=== PATIENT | male | born 1945 | race Caucasian/White ===

== ENCOUNTER 2019-05-12 00:35 | Inpatient (IN) ==
[2019-05-12] MEDS ORDERED: IOPAMIDOL 100 ML BOTTLE IV ONE (00:36)
[2019-05-12] MEDS ORDERED: 0.9 % SODIUM CHLORIDE 1,000 ML IV ONE (00:54)
[2019-05-12] MEDS ORDERED: IPRATROPIUM/ALBUTEROL 3 ML AMPUL.NEB NEB ONE (00:57)
--- NOTE | 2019-05-12 01:00 | Emergency Department Note ---
Weakness HPI - General Chief complaint: Weakness Stated complaint: found on floor moaning Time Seen by Provider: 05/12/19 00:49 Source: patient, family Mode of arrival: EMS - History of Present Illness HPI Narrative: 73-year-old male brought in by EMS for weakness since this afternoon. His family apparently found him on the floor and he was a little bit confused. He did not fall but lowered himself to the floor. He has been retching and he is wheezing. His family and him are visiting from the [facility]. Is very hard of hearing wears hearing aids so patient's is giving us most of the history - Related Data Home Medications Medication Instructions Recorded Confirmed Insulin NPH, Human [HumaLIN N] 38 units 05/12/19 Lisinopril [Zestril] 10 mg PO BID 05/12/19 05/12/19 Warfarin [Coumadin] 3 mg PO DAILY 05/12/19 05/12/19 Allergies Allergy/AdvReac Type Severity Reaction Status Date / Time thimerosal Allergy Verified 05/12/19 02:04 Review of Systems All systems ED: reviewed and negative except as stated. Past Medical History - Past Medical History Attestation: Yes: The following information was validated with the patient. Medical history: Reports: atrial fibrillation, DM, hyperlipidemia, hypertension Surgical history ED: Reports: pacemaker/AICD, other (Back surgery) - Social History smoking status: Never smoker Physical Exam Normocephalic atraumatic. Conjunctive are clear sclerae white and icteric. He does have gross hearing loss. No nasal does discharge or congestion. Oropharynx is with dry buccal mucosa. Neck is supple without lymphadenopathy thyromegaly or carotid bruit. Heart is regular rate and rhythm no murmur appreciated. Lungs clear to auscultation bilaterally without rales or rhonchi but he clearly has an end expiratory wheeze-auscultation is somewhat difficult secondary to body habitus. Abdomen soft nontender nondistended except for the left lower quadrant. Which has mild tenderness diffusely. Bilateral lower extremities with mild pedal edema. He is somnolent and somewhat irritable. He is however able to answer questions appropriately Limitations: altered mental status, other (Hearing aids) Course Vital Signs Temperature 99.4 F H 05/12/19 00:39 Pulse Rate 73 05/12/19 00:39 Respiratory Rate 24 H 05/12/19 00:39 Pulse Oximetry (%) 94 05/12/19 00:39 Temperature 99.4 F H 05/12/19 00:39 Pulse Rate 76 05/12/19 02:53 Respiratory Rate 20 05/12/19 02:53 Blood Pressure 172/90 05/12/19 02:53 Pulse Oximetry (%) 89 L 05/12/19 02:53 Weakness - Lab Data Lab results reviewed: Yes I reviewed the patient's lab results. Result diagrams: 05/12/19 01:12 05/12/19 01:12 Lab Results 05/12/19 05/12/19 05/12/19 Range/Units 01:12 01:12 01:12 WBC 17.4 H (4.5-11.0) K/mcL RBC 4.87 (4.50-5.90) M/mcL Hgb 14.5 (13.5-16.5) g/dL Hct 45.3 (41.0-55.0) % POC Hct 49.0 (41.0-55.0) % MCV 93.2 (80.0-100.0) fL MCH 29.9 (26.0-34.0) pg MCHC 32.1 (31.0-36.0) g/dL RDW 15.7 H (11.5-14.5) % Plt Count 219 (140-440) K/mcL MPV 8.8 (7.4-10.4) fL Gran % 91.0 H (38.0-78.0) % Lymph % (Auto) 3.2 L (15.5-49.0) % [place] % (Auto) 5.5 (1.0-12.0) % Eos % (Auto) 0.1 (0.0-7.0) % Baso % (Auto) 0.2 (0.0-2.0) % Gran # 15.9 H (1.8-8.0) K/mcL Lymph # (Auto) 0.6 L (1.5-4.8) K/mcL [place] # (Auto) 1.0 H (0.1-0.9) K/mcL Eos # (Auto) 0 (0.0-0.7) K/mcL Baso # (Auto) 0 (0.0-0.3) K/mcL PT 26.9 H (11.9-14.5) sec INR 2.5 H (0.9-1.1) VBG Lactic Acid (0.5-2.0) mmol/L POC Sodium 137 (133-145) mmol/L Sodium 136 (133-145) mmol/L POC Potassium 4.8 (3.3-5.1) mmol/L Potassium 5.1 (3.3-5.1) mmol/L POC Chloride 102 (96-108) mmol/L Chloride 97 (96-108) mmol/L Carbon Dioxide 20 L (22-30) mmol/L POC Total CO2 25 (22-30) mmol/L Anion Gap 19.0 H (8-16) POC BUN 32 H (8-23) mg/dl BUN 28 H (8-23) mg/dl Creatinine 1.3 H (0.7-1.2) mg/dl POC Creatinine 1.3 H (0.7-1.2) mg/dl GFR Calculation 53 Glucose 278 H (70-105) mg/dL POC Glucose 289 H (70-105) mg/dL Calcium 8.6 (8.6-10.4) mg/dl POC WB Ioniz Calcium 1.06 L (1.16-1.32) mmol/L Magnesium 1.9 (1.6-2.5) mg/dL Total Bilirubin 0.8 (0.0-1.0) mg/dL AST 25 (0-37) U/l ALT 29 (0-40) U/l Alkaline Phosphatase 114 (39-117) U/L Troponin T (0-0.03) ng/ml NT-Pro-B Natriuret Pep 495.7 H (0-450) pg/ml Total Protein 7.2 (5.9-8.4) gm/dL Albumin 3.8 (3.2-5.2) gm/dL Globulin 3.4 (2.2-3.7) gm/dL Albumin/Globulin Ratio 1.1 (1.0-2.3) Procalcitonin (<0.10) ng/mL 05/12/19 05/12/19 05/12/19 Range/Units 01:12 01:12 01:27 WBC (4.5-11.0) K/mcL RBC (4.50-5.90) M/mcL Hgb (13.5-16.5) g/dL Hct (41.0-55.0) % POC Hct (41.0-55.0) % MCV (80.0-100.0) fL MCH (26.0-34.0) pg MCHC (31.0-36.0) g/dL RDW (11.5-14.5) % Plt Count (140-440) K/mcL MPV (7.4-10.4) fL Gran % (38.0-78.0) % Lymph % (Auto) (15.5-49.0) % [place] % (Auto) (1.0-12.0) % Eos % (Auto) (0.0-7.0) % Baso % (Auto) (0.0-2.0) % Gran # (1.8-8.0) K/mcL Lymph # (Auto) (1.5-4.8) K/mcL [place] # (Auto) (0.1-0.9) K/mcL Eos # (Auto) (0.0-0.7) K/mcL Baso # (Auto) (0.0-0.3) K/mcL PT (11.9-14.5) sec INR (0.9-1.1) VBG Lactic Acid 1.8 (0.5-2.0) mmol/L POC Sodium (133-145) mmol/L Sodium (133-145) mmol/L POC Potassium (3.3-5.1) mmol/L Potassium (3.3-5.1) mmol/L POC Chloride (96-108) mmol/L Chloride (96-108) mmol/L Carbon Dioxide (22-30) mmol/L POC Total CO2 (22-30) mmol/L Anion Gap (8-16) POC BUN (8-23) mg/dl BUN (8-23) mg/dl Creatinine (0.7-1.2) mg/dl POC Creatinine (0.7-1.2) mg/dl GFR Calculation Glucose (70-105) mg/dL POC Glucose (70-105) mg/dL Calcium (8.6-10.4) mg/dl POC WB Ioniz Calcium (1.16-1.32) mmol/L Magnesium (1.6-2.5) mg/dL Total Bilirubin (0.0-1.0) mg/dL AST (0-37) U/l ALT (0-40) U/l Alkaline Phosphatase (39-117) U/L Troponin T < 0.01 (0-0.03) ng/ml NT-Pro-B Natriuret Pep (0-450) pg/ml Total Protein (5.9-8.4) gm/dL Albumin (3.2-5.2) gm/dL Globulin (2.2-3.7) gm/dL Albumin/Globulin Ratio (1.0-2.3) Procalcitonin 0.12 (<0.10) ng/mL ABG shows a pH 7.38 PCO2 43 PO2 56 on oxygen - Radiology Data Radiology results reviewed: Yes I reviewed the patient's radiology results. Portable chest x-ray shows left-sided infiltrate with increased pulmonary vascular markings likely severe pneumonia with underlying heart failure Bladder scan showed 212 ml of urine - EKG Data EKG attestation: Yes I reviewed and interpreted this EKG. EKG results narrative: EKG shows a rate of 78 with atrial flutter 3-1 AV block. Disposition Pt seen by RN PARALEGAL/PA only: No Clinical Impression: Pneumonia Qualifiers: Pneumonia type: due to unspecified organism Laterality: left Lung location: unspecified part of lung Qualified Code(s): J18.9 - Pneumonia, unspecified organism Sepsis Qualifiers: Sepsis type: sepsis due to unspecified organism Qualified Code(s): A41.9 - Sepsis, unspecified organism Summary: After initial evaluation work-up was ordered. Start IV fluids blood cultures get antibiotics going. Concern for Sirs versus sepsis criteria with elevated temperature, tachypnea, altered mental status, and hypoxia. Requiring mask oxygen Bladder scan just showed 212 and he was unable to void so Marc catheter placed. CT scan ordered because chest x-ray showed left-sided pneumonia. I discussed the situation with Dr. Rosales, our hospitalist. He agreed to accept patient for further care and evaluation. At the time of admission CT scan of the chest and urinalysis are still pending Disposition: Xfer As Inpt ([facility]) Condition: Fair
[2019-05-12] MEDS ORDERED: ONDANSETRON 4 MG/2 ML VIAL IV ONE (01:01)
[2019-05-12] MEDS ORDERED: VANCOMYCIN 1,000 MG in 0.9 % SODIUM CHLORIDE 250 ML IV ONE (01:01)
[2019-05-12] MEDS ORDERED: PIPERACILLIN SODIUM/TAZOBACTAM 3.375 GM in DEXTROSE 5% IN WATER 50 ML IV ONE (01:01)
[2019-05-12 01:58] LABS: POC Blood Urea Nitrogen 32 mg/dl (8-23); POC CO2 25 mmol/L (22-30); POC Calcium, Ionized 1.06 mmol/L (1.16-1.32); POC Chloride 102 mmol/L (96-108); POC Creatinine 1.3 mg/dl (0.7-1.2); POC Glucose, Random 289 mg/dL (70-105); POC Potassium 4.8 mmol/L (3.3-5.1); POC Sodium 137 mmol/L (133-145)
[2019-05-12 02:21] LABS: Basophils # (Auto) 0 K/mcL (0.0-0.3); Basophils % (Auto) 0.2 % (0.0-2.0); Eosinophils # (Auto) 0 K/mcL (0.0-0.7); Eosinophils % (Auto) 0.1 % (0.0-7.0); Hematocrit 45.3 % (41.0-55.0); Hemoglobin 14.5 g/dL (13.5-16.5); Lymphocytes # (Auto) 0.6 K/mcL (1.5-4.8); Lymphocytes % (Auto) 3.2 % (15.5-49.0); Mean Cell Volume 93.2 fL (80.0-100.0); Mean Corpuscular HGB Conc 32.1 g/dL (31.0-36.0); Mean Platelet Volume 8.8 fL (7.4-10.4); Monocytes % (Auto) 5.5 % (1.0-12.0); Platelet Count 219 K/mcL (140-440); RBC 4.87 M/mcL (4.50-5.90); Red Cell Distribution Width 15.7 % (11.5-14.5); WBC 17.4 K/mcL (4.5-11.0)
[2019-05-12 02:31] LABS: INR 2.5 (0.9-1.1); Prothrombin Time 26.9 sec (11.9-14.5)
[2019-05-12 02:42] LABS: proBNP 495.7 pg/ml (0-450)
[2019-05-12 02:43] LABS: ALT/SGPT 29 U/l (0-40); AST/SGOT 25 U/l (0-37); Albumin 3.8 gm/dL (3.2-5.2); Albumin/Globulin Ratio 1.1 (1.0-2.3); Alkaline Phosphatase 114 U/L (39-117); Bilirubin,Total 0.8 mg/dL (0.0-1.0); Blood Urea Nitrogen 28 mg/dl (8-23); Calcium 8.6 mg/dl (8.6-10.4); Carbon Dioxide 20 mmol/L (22-30); Chloride 97 mmol/L (96-108); Globulin 3.4 gm/dL (2.2-3.7); Glomerular Filtration Rate 53; Glucose 278 mg/dL (70-105); Magnesium 1.9 mg/dL (1.6-2.5); Potassium 5.1 mmol/L (3.3-5.1); Sodium 136 mmol/L (133-145)
[2019-05-12] MEDS ORDERED: AZITHROMYCIN 250 MG TABLET PO ONE ×2 (03:08→03:52)
[2019-05-12] MEDS ORDERED: NALOXONE HCL 0.4 MG/ML VIAL IV PRN (03:52)
[2019-05-12] MEDS ORDERED: DEXTROSE 31 GM ORAL.SUSP PO PRN (03:52)
[2019-05-12] MEDS ORDERED: VANCOMYCIN PER PHARMACY IV SCH (03:52)
[2019-05-12] MEDS ORDERED: DEXTROSE 50% 50 ML VIAL IV PRN (03:52)
[2019-05-12] MEDS ORDERED: ONDANSETRON 4 MG/2 ML VIAL IV PRN (03:52)
[2019-05-12 04:20] LABS: Appearance,Urine CLEAR; Bacteria,Urine 0 /hpf (0); Bilirubin,Urine NEG (NEG); Color,Urine YELLOW; Culture Indicated,Urine NO; Glucose,Urine (UA) >=500 mg/dL (NEG); Ketones,Urine 20 mg/dL (NEG); Leukocyte Esterase,Urine NEG /uL (NEG); Mucus,Urine FEW /hpf (0); Nitrate,Urine NEG (NEG); Protein,Urine 100 mg/dL (NEG); Urine Blood 0.2 mg/dL (<0.03); Urine RBC 22 /hpf (0-1); Urine Squamous Epithelial Cell 0 /hpf (0-4); Urine WBC 1 /hpf (0-4); Urobilinogen,Urine NEG (NEG)
[2019-05-12] MEDS: LACTATED RINGERS 1,000 ML IV SCH ×3 (04:31→11:53)
[2019-05-12] MEDS: PIPERACILLIN SODIUM/TAZOBACTAM 4.5 GM in DEXTROSE 5% IN WATER 50 ML IV SCH ×3 (04:32→14:00)
[2019-05-12] MEDS: 0.9 % SODIUM CHLORIDE 10 ML SYRINGE IV SCH ×3 (05:37→21:00)
--- NOTE | 2019-05-12 07:02 | XRay Report ---
INDICATION: Found down TECHNIQUE: AP chest x-ray,portable semiupright COMPARISON: None FINDINGS:Left transvenous pacemaker leads in appropriate positions for right atrium and right ventricle. There are spinal cord stimulator leads present. Examination is suboptimal due to portable technique and semiupright position There is cardiomegaly. There are diffuse infiltrates, left worse than right. Findings may be due to congestive heart failure but left lung pneumonia is also possible. Clinical correlation and follow-up radiographs are recommended. IMPRESSION: 1. Diffuse infiltrates, left worse than right 2. Cardiomegaly 3. Findings consistent with congestive heart failure. Left lung pneumonia is also possible Interpreted and Authenticated by: Marc Saldaña 05/12/19
--- NOTE | 2019-05-12 07:20 | Cat Scan Report ---
CLINICAL INFORMATION: Found down COMPARISON: None. TECHNIQUE: Axial noncontrast-enhanced images through the brain. Sagittal and coronal reformatted images FINDINGS: No acute intracranial hemorrhage. No intra-axial hematoma. No focal intra-axial attenuation abnormality or localized mass effect. No midline shift. There is mild atrophy with enlarged ventricles and superficial subarachnoid spaces. This is probably age appropriate. Brainstem and cerebellum are negative. No subdural hematoma. There is no subarachnoid hemorrhage. Basilar cisterns are normal. No hyperdense middle cerebral artery sign. No calvarial fracture or lytic lesion. Temporal bones are negative. No basilar skull fracture. Examination was initially evaluated by direct radiology IMPRESSION: No acute or focal abnormality The exam was performed using radiation dose optimization techniques including, but not limited to, automated exposure control, adjustment of the mA and/or kV according to patient size and use of iterative reconstruction technique. Interpreted and Authenticated by: Marc Saldaña 05/12/19
[2019-05-12] MEDS: IPRATROPIUM/ALBUTEROL 3 ML AMPUL.NEB NEB SCH ×3 (07:23→19:20)
--- NOTE | 2019-05-12 07:24 | Cat Scan Report ---
CLINICAL INFORMATION: left lung pneumonia COMPARISON: Chest x-ray dated 05/12/2019 TECHNIQUE: Axial contrast enhanced images through the chest. Sagittally and coronally reformatted images. MIP reformatted images. 80 mL contrast material injected intravenously. FINDINGS: Suboptimal evaluation due to patient motion and inability to suspend respirations. There is diffuse pulmonary parenchymal abnormality with areas of groundglass infiltrate. Infiltrate is worse on the left than the right. Findings may be due to pulmonary edema or pneumonia. Follow-up radiographs recommended. There is mild cardiomegaly. Shaylee and mediastinum are negative. No pathologic adenopathy. No axillary or supraclavicular adenopathy. There is coronary artery calcification. There is no pericardial effusion. No significant pleural effusion. No pulmonary parenchymal mass. No evidence for neoplasm. Multilevel degenerative disc disease in the thoracic spine. No thoracic compression fractures. No lytic lesions. Sternum and ribs are negative. Upper abdomen is negative except for mild cholelithiasis. Examination was initially reviewed by [facility] IMPRESSION: 1. Airspace disease with patchy infiltrates bilaterally. Findings may be due to pneumonia or pulmonary edema. Clinical correlation and follow-up radiograph recommended 2. Mild cardiomegaly 3. Cholelithiasis The exam was performed using radiation dose optimization techniques including, but not limited to, automated exposure control, adjustment of the mA and/or kV according to patient size and use of iterative reconstruction technique. Interpreted and Authenticated by: Marc Saldaña 05/12/19
[2019-05-12] MEDS: INSULIN LISPRO 1 UNIT/0.01 ML UNIT SQ SCH ×4 (08:54→22:06)
[2019-05-12] MEDS: MUPIROCIN OINT 2% 22GM NARES SCH (08:55)
[2019-05-12] MEDS: HEPARIN 5,000 UNIT/ML VIAL SQ SCH (09:00)
--- NOTE | 2019-05-12 09:18 | Internal Med History&Physical ---
Medical - H&P: HPI Patient information: Note initiated : 05/12/19 at 9:15 am Service Date, if different from initiated Date: [] Patient: Will Elizalde a 77 y/o M admitted on 05/12/19 for found on floor moaning. Chief Complaint: [] History of present illness: Mr. Elizalde is a 77 year old M individual with multiple medical problems hard of hearing presented to the emergency room early this morning because of cough and weakness that has been bothering him for 1 day. The patient is hard of hearing and history is predominately by direct questioning. Patient's was not by the bedside The patient notes that he was here to visit family, he is a resident of [place], he does have a history of atrial fibrillation diabetes he takes Coumadin. The patient has been having cough for the last 1 day, denies any sick contacts denies any mucus production. Subjective sensation of weakness some chills denies any obvious fever his condition progressively got worse, he was confused and yesterday it seems he fell to the ground or slip to the ground when he woke up during sleep. His family therefore brought him to the emergency room for further evaluation. The patient denies any headache changes in vision difficulty in swallowing denies any chest pain does have some cough week and therefore some shortness of breath on exertion, no nausea no vomiting no diarrhea no abdominal pain no new skin rashes has chronic back pain has a spinal cord stimulator. Has easy bruising he takes Coumadin, denies any obvious bleeding from any site. Denies any urinary complaints. On presenting to the emergency room patient was febrile, blood pressure stable mildly tachypneic, needing oxygen 5 to 6 L nasal cannula to maintain oxygen saturation more than 90. Labs showed leukocytosis WBC count of 17.4 hemoglobin 14.5 platelets 219 lactic acid 1.8 INR 2.5 chemistry showed renal function of 1.3 BUN 28 anion gap of 19 glucose 278 sodium 136 potassium 4.8 bicarbonate 20 BNP was 495, troponin is negative procalcitonin is 0.12. ABG done shows pH of 7.38 PCO2 43 PO2 of 56 Patient chest x-ray shows diffuse infiltrates left more than right. Head CT was negative, chest CT shows bilateral airspace disease mild cardiomegaly. Mycoplasma and strep pneumonia antigen are negative EKG shows sinus rhythm left axis Patient admitted to telemetry status for further management All systems: reviewed and no additional remarkable complaints except as stated (as per HPI rest negative) Medical - H&P: PMH Medical history: Atrial fibrillation Obesity Hypertension Diabetes Chronic back pain status post pacemaker chronic anticoagulate Surgical history: Status post spinal stimulate Status post pacemaker Family history: reviewed and not pertinent Social history: Lives with Non-smoker No drugs or EtOH reported Medical - H&P: Meds Home Medications Medication Instructions Recorded Confirmed Type Insulin NPH, Human [HumaLIN N] 38 units 05/12/19 History Lisinopril [Zestril] 10 mg PO BID 05/12/19 05/12/19 History Warfarin [Coumadin] 3 mg PO DAILY 05/12/19 05/12/19 History Allergies Allergy/AdvReac Type Severity Reaction Status Date / Time thimerosal Allergy Verified 05/12/19 02:04 Medical - H&P: Exam - Constitutional Vitals: Temp Pulse Resp BP Pulse Ox 100.9 F H 69 20 121/61 96 05/12/19 05:00 05/12/19 07:39 05/12/19 07:39 05/12/19 04:17 05/12/19 07:38 Exam: GENERAL: The patient is a well-developed, obese in no apparent distress. Is alert and oriented x3. VITAL SIGNS: Reviewed and as noted elsewhere. HEENT: Head is normocephalic and atraumatic. Extraocular muscles are intact. Pupils are equal, round, and reactive to light. Nares appeared normal. Mouth appears any without lesions. Mucous membranes are moist. Hard of hearing NECK: Normal to inspection, Supple, No lymphadenopathy or thyromegaly. LUNGS: Air entry equal on both sides, no wheezing, bilateral crackles at the bases and mid zone mild no accessory muscles of respiration HEART: Regular rate and rhythm normal, S1 and S2 heard, no Gallop, S3 or Rub Noted, No Gross murmur heard. ABDOMEN: Soft, nontender, and nondistended. Positive bowel sounds. No hepatosplenomegaly was noted. Large pannus EXTREMITIES: No cyanosis, clubbing, rash, lesions or edema. NEUROLOGIC: Cranial nerves II through XII are grossly intact. Motor and Sensory System Grossly Intact PSYCHIATRIC: Normal affect, Normal Mood. Appropriate Behavior. SKIN: No ulceration or wounds noted, No jaundice, No rash noted. Bruising noted Medical - H&P: Reslt - Labs CBC & Chem 7: 05/12/19 01:12 05/12/19 01:12 Labs: Short CBC 05/12/19 Range/Units 01:12 WBC 17.4 H (4.5-11.0) K/mcL Hgb 14.5 (13.5-16.5) g/dL Hct 45.3 (41.0-55.0) % Plt Count 219 (140-440) K/mcL BMP 05/12/19 01:12 Sodium 136 Potassium 5.1 Chloride 97 Carbon Dioxide 20 L BUN 28 H Creatinine 1.3 H Glucose 278 H Calcium 8.6 Cardiac Enzymes 05/12/19 Range/Units 01:12 Troponin T < 0.01 (0-0.03) ng/ml Liver Function 05/12/19 Range/Units 01:12 Total Bilirubin 0.8 (0.0-1.0) mg/dL AST 25 (0-37) U/l ALT 29 (0-40) U/l Alkaline Phosphatase 114 (39-117) U/L Albumin 3.8 (3.2-5.2) gm/dL Urine 05/12/19 Range/Units 03:03 Urine Color Yellow Urine Appearance Clear Urine pH 5.0 (5.0-9.0) Ur Specific [place] 1.030 (1.000-1.035) Urine Protein 100 A (NEG) mg/dL Urine Glucose (UA) >=500 A (NEG) mg/dL Medical - H&P: A/P - Narrative A/P Narrative: A/P Sepsis Pneumonia DM HTN Atrial Fibrillation h/o High anion gap acidosis Renal failure, acute vs chronic Chronic Anticoagulation Acute hypoxic respiratory failure Obstructive Sleep Apnea Plan Admit to telemetry status Oxygen to maintain oxygen saturation more than 90 Fluid resuscitation Trend labs Continue anticoagulation patient is presently in sinus rhythm on Coumadin IV vancomycin and Zosyn azithromycin, follow blood cultures and sputum cultures de-escalate antibiotic therapy depending on cultures OT PT ST evaluation DVT on coumadin Full code carb consistent, cardiac diet. Medical - H&P: Qual - VTE Deep Vein Thrombosis/Pulmonary Embolism Present on Admission: No
[2019-05-12 10:48] LABS: Basophils # (Auto) 0 K/mcL (0.0-0.3); Basophils % (Auto) 0 % (0.0-2.0); Eosinophils # (Auto) 0 K/mcL (0.0-0.7); Eosinophils % (Auto) 0 % (0.0-7.0); Granulocytes % (Auto) 92.6 % (38.0-78.0); Hemoglobin 13.9 g/dL (13.5-16.5); Lymphocytes # (Auto) 0.6 K/mcL (1.5-4.8); Lymphocytes % (Auto) 2.7 % (15.5-49.0); Mean Cell Volume 94.1 fL (80.0-100.0); Mean Corpuscular HGB Conc 32.2 g/dL (31.0-36.0); Mean Platelet Volume 9.2 fL (7.4-10.4); Monocytes % (Auto) 4.7 % (1.0-12.0); Platelet Count 206 K/mcL (140-440); RBC 4.57 M/mcL (4.50-5.90); WBC 20.6 K/mcL (4.5-11.0)
[2019-05-12] MEDS: VANCOMYCIN 1,500 MG in 0.9 % SODIUM CHLORIDE 500 ML IV SCH ×2 (11:00→22:00)
[2019-05-12 11:12] LABS: ALT/SGPT 25 U/l (0-40); AST/SGOT 27 U/l (0-37); Albumin 3.4 gm/dL (3.2-5.2); Albumin/Globulin Ratio 1.1 (1.0-2.3); Alkaline Phosphatase 96 U/L (39-117); Bilirubin,Direct 0.2 mg/dL (0.0-0.3); Bilirubin,Total 0.8 mg/dL (0.0-1.0); Blood Urea Nitrogen 26 mg/dl (8-23); Calcium 8.3 mg/dl (8.6-10.4); Carbon Dioxide 22 mmol/L (22-30); Chloride 98 mmol/L (96-108); Globulin 3.2 gm/dL (2.2-3.7); Glomerular Filtration Rate 53; Glucose 354 mg/dL (70-105); Lactate Dehydrogenase 309 U/L (94-250); Magnesium 1.8 mg/dL (1.6-2.5); Phosphorous 3.5 mg/dL (2.7-4.5); Potassium 4.6 mmol/L (3.3-5.1); Sodium 136 mmol/L (133-145); Triglycerides 67 mg/dl (<150); Uric Acid 3.9 mg/dL (2.5-8.0)
[2019-05-12] MEDS ORDERED: WARFARIN 3 MG TABLET PO ONE (14:00)
[2019-05-12] MEDS: ACETAMINOPHEN 325 MG TABLET PO PRN (15:16)
[2019-05-12] MEDS: METOPROLOL TARTRATE 50 MG TABLET PO SCH (21:00)
[2019-05-12] MEDS: BRIMONIDINE OPHTH DROPS 1 GTT BOTTLE 5ML OU SCH (21:00)
[2019-05-13] MEDS: MUPIROCIN OINT 2% 22GM NARES SCH ×3 (05:29→21:04)
[2019-05-13] MEDS: HEPARIN 5,000 UNIT/ML VIAL SQ SCH ×2 (05:29→09:35)
[2019-05-13] MEDS: GABAPENTIN 100 MG CAPSULE PO SCH ×3 (05:31→21:02)
[2019-05-13] MEDS: PIPERACILLIN SODIUM/TAZOBACTAM 4.5 GM in DEXTROSE 5% IN WATER 50 ML IV SCH ×4 (05:37→23:08)
[2019-05-13] MEDS: IPRATROPIUM/ALBUTEROL 3 ML AMPUL.NEB NEB SCH ×2 (05:38→07:31)
[2019-05-13] MEDS ORDERED: PANTOPRAZOLE 40 MG TABLET PO SCH (07:30)
[2019-05-13] MEDS: INSULIN LISPRO 1 UNIT/0.01 ML UNIT SQ SCH ×4 (07:46→21:03)
[2019-05-13] MEDS ORDERED: AMIODARONE HCL 200 MG TABLET PO SCH (08:00)
[2019-05-13] MEDS ORDERED: AZITHROMYCIN 250 MG TABLET PO SCH (09:00)
[2019-05-13] MEDS ORDERED: ATORVASTATIN 20 MG TABLET PO SCH (09:00)
[2019-05-13] MEDS ORDERED: MULTIVIT,THER IRON,CA,FA & MIN 1 TABLET PO SCH (09:00)
[2019-05-13] MEDS: 0.9 % SODIUM CHLORIDE 10 ML SYRINGE IV SCH ×3 (09:27→21:24)
[2019-05-13] MEDS: BRIMONIDINE OPHTH DROPS 1 GTT BOTTLE 5ML OU SCH ×3 (09:30→21:02)
[2019-05-13] MEDS: METOPROLOL TARTRATE 50 MG TABLET PO SCH ×2 (09:35→21:24)
[2019-05-13] MEDS: ACETAMINOPHEN 325 MG TABLET PO PRN ×2 (09:35→17:49)
[2019-05-13 09:41] LABS: ALT/SGPT 23 U/l (0-40); AST/SGOT 31 U/l (0-37); Albumin 2.9 gm/dL (3.2-5.2); Alkaline Phosphatase 80 U/L (39-117); Bilirubin,Direct < 0.2 mg/dL (0.0-0.3); Bilirubin,Total 0.4 mg/dL (0.0-1.0); Blood Urea Nitrogen 28 mg/dl (8-23); Calcium 7.9 mg/dl (8.6-10.4); Carbon Dioxide 23 mmol/L (22-30); Chloride 102 mmol/L (96-108); Glomerular Filtration Rate 67; Glucose 184 mg/dL (70-105); Lactate Dehydrogenase 336 U/L (94-250); Magnesium 2.1 mg/dL (1.6-2.5); Phosphorous 3.1 mg/dL (2.7-4.5); Potassium 4.4 mmol/L (3.3-5.1); Sodium 136 mmol/L (133-145); Triglycerides 67 mg/dl (<150); Uric Acid 3.2 mg/dL (2.5-8.0)
[2019-05-13 09:47] LABS: Basophils # (Auto) 0 K/mcL (0.0-0.3); Basophils % (Auto) 0.2 % (0.0-2.0); Eosinophils # (Auto) 0 K/mcL (0.0-0.7); Eosinophils % (Auto) 0.3 % (0.0-7.0); Granulocytes % (Auto) 83.9 % (38.0-78.0); Hematocrit 37.9 % (41.0-55.0); Hemoglobin 12.3 g/dL (13.5-16.5); INR 4.1 (0.9-1.1); Lymphocytes # (Auto) 0.9 K/mcL (1.5-4.8); Lymphocytes % (Auto) 7.3 % (15.5-49.0); Mean Cell Volume 93.7 fL (80.0-100.0); Mean Corpuscular HGB Conc 32.5 g/dL (31.0-36.0); Mean Platelet Volume 9.1 fL (7.4-10.4); Monocytes % (Auto) 8.3 % (1.0-12.0); Platelet Count 199 K/mcL (140-440); Prothrombin Time 39.1 sec (11.9-14.5); RBC 4.04 M/mcL (4.50-5.90); Red Cell Distribution Width 16.4 % (11.5-14.5); WBC 12.2 K/mcL (4.5-11.0)
[2019-05-13] MEDS ORDERED: ONDANSETRON 4 MG/2 ML VIAL IV PRN (09:56)
[2019-05-13] MEDS ORDERED: NALOXONE HCL 0.4 MG/ML VIAL IV PRN (09:56)
[2019-05-13] MEDS ORDERED: VANCOMYCIN PER PHARMACY IV SCH (09:56)
[2019-05-13] MEDS ORDERED: DEXTROSE 31 GM ORAL.SUSP PO PRN (09:56)
[2019-05-13] MEDS ORDERED: DEXTROSE 50% 50 ML VIAL IV PRN (09:56)
--- NOTE | 2019-05-13 10:06 | Internal Med Progress Note ---
Medical - PN: Subj Patient information: Note initiated : 05/13/19 at 10:03 am Service Date, if different from initiated Date: [] Patient: Will Elizalde a 73 y/o M admitted on 05/12/19 for found on floor moaning. Chief Complaint: [] Interval history: Mr. Elizalde is a 77 year old M individual with multiple medical problems hard of hearing presented to the emergency room early this morning because of cough and weakness that has been bothering him for 1 day. The patient is hard of hearing and history is predominately by direct questioning. Patient's was not by the bedside The patient notes that he was here to visit family, he is a resident of [place], he does have a history of atrial fibrillation diabetes he takes Coumadin. The patient has been having cough for the last 1 day, denies any sick contacts denies any mucus production. Subjective sensation of weakness some chills denies any obvious fever his condition progressively got worse, he was confused and yesterday it seems he fell to the ground or slip to the ground when he woke up during sleep. His family therefore brought him to the emergency room for further evaluation. The patient denies any headache changes in vision difficulty in swallowing denies any chest pain does have some cough week and therefore some shortness of breath on exertion, no nausea no vomiting no diarrhea no abdominal pain no new skin rashes has chronic back pain has a spinal cord stimulator. Has easy bruising he takes Coumadin, denies any obvious bleeding from any site. Denies any urinary complaints. On presenting to the emergency room patient was febrile, blood pressure stable mildly tachypneic, needing oxygen 5 to 6 L nasal cannula to maintain oxygen saturation more than 90. Labs showed leukocytosis WBC count of 17.4 hemoglobin 14.5 platelets 219 lactic acid 1.8 INR 2.5 chemistry showed renal function of 1.3 BUN 28 anion gap of 19 glucose 278 sodium 136 potassium 4.8 bicarbonate 20 BNP was 495, troponin is negative procalcitonin is 0.12. ABG done shows pH of 7.38 PCO2 43 PO2 of 56 Patient chest x-ray shows diffuse infiltrates left more than right. Head CT was negative, chest CT shows bilateral airspace disease mild cardiomegaly. Mycoplasma and strep pneumonia antigen are negative EKG shows sinus rhythm left axis Patient admitted to telemetry status for further management 07/07 Patient seen and examined, no acute overnight events. Tolerating p.o. diet well feeling better. On 2 to 3 L of oxygen, air entry is better according to the patient Labs show improvement in WBC count, he is making good urine Patient is a viral panel is negative, MRSA screen is positive. He is +2795 mL since admission Patient is stable to be transferred to medical status. Pertinent ROS: Denies headache, dizziness Denies chest pain, palpitations Not much cough, much improved shortness of breath Denies abdominal pain, nausea or vomiting. - Constitutional Vitals: Vital Signs Temp Pulse Resp BP Pulse Ox 97.5 F 68 16 141/65 94 05/13/19 07:32 05/13/19 07:40 05/13/19 07:40 05/13/19 07:32 05/13/19 07:40 Period Temp Pulse Resp BP Sys/Ortega Pulse Ox Last 24 Hr 97.5 F-99.3 F 63-68 14-21 105-141/56-76 90-97 Intake and Output 05/12/19 05/13/19 05/13/19 21:59 05:59 13:59 Intake Total 1050 505 410 Output Total 1150 750 Balance -100 -245 410 Weight 240 lb 4.8 oz Intake & Output: Intake & Output 05/12/19 05/13/19 05/13/19 21:59 05:59 13:59 Intake Total 1050 505 410 Output Total 1150 750 Balance -100 -245 410 Weight 240 lb 4.8 oz Intake: IV 1050 505 50 Lactated Ringers 1,000 ml @ 250 1000 mls/hr IV .Q4H [facility] Rx#: [id number] Zosyn 4.5 gm In Dextrose 5% in 50 5 50 Water 50 ml @ 100 mls/hr IV Q8H [facility] Rx#:[id number] Vancomycin 1,500 mg In Sodium 500 Chloride 0.9% 500 ml @ 333.3 mls/hr IV Q12H [facility] Rx#: [id number] Oral 360 Output: Urine Catheter Amount 1150 750 Other: Meal Breakfast Percent of Meal Consumed 100% Feeding Ability Independent Urine Appearance Cloudy Clear Uretheral (Marc) Clear Clear Clear Urine Color Tea Colored Tea Colored Dark Yellow Uretheral (Marc) Dark Yellow Dark Yellow Dark Yellow Light Consuelo Light Consuelo Urine Odor Strong Normal Uretheral (Marc) Normal Stool Size Copious Copious Stool Color Brown Brown Stool Consistency Soft Soft Formed Formed # Bowel Movements 1 Exam: Constitutional; Afebrile, cooperative, alert, not in distress. Respiratory system: Air Entry equal on both sides, no crackles on the right side mild crackles at the left base CVS- Rate rhythm regular, S1,S2 heard, no gallop, no rub. Abdomen- Soft nontender abdomen, no organomegaly, no tenderness, no guarding or rigidity, [employer]- AOOx3, moving all extremities, no gross focal deficit noted. Medical - PN: Obj Da - Labs CBC & Chem 7: 05/13/19 03:43 05/13/19 03:43 Labs: Abnormal Lab Results 05/13/19 05/13/19 05/13/19 08:00 03:43 03:43 WBC 12.2 H RBC 4.04 L Hgb 12.3 L Hct 37.9 L RDW 16.4 H Gran % 83.9 H Lymph % (Auto) 7.3 L Gran # 10.2 H Lymph # (Auto) 0.9 L [place] # (Auto) 1.0 H PT 39.1 H INR 4.1 H Carbon Dioxide Anion Gap POC BUN BUN Creatinine POC Creatinine Glucose POC Glucose Calcium POC WB Ioniz Calcium Lactate Dehydrogenase NT-Pro-B Natriuret Pep Albumin Urine Protein Urine Glucose (UA) Urine Ketones Urine Occult Blood Urine RBC Vancomycin Trough 22.5 H* 05/13/19 05/12/19 05/12/19 03:43 09:48 09:48 WBC 20.6 H RBC Hgb Hct RDW 16.0 H Gran % 92.6 H Lymph % (Auto) 2.7 L Gran # 19.1 H Lymph # (Auto) 0.6 L [place] # (Auto) 1.0 H PT INR Carbon Dioxide Anion Gap POC BUN BUN 28 H 26 H Creatinine 1.3 H POC Creatinine Glucose 184 H 354 H POC Glucose Calcium 7.9 L 8.3 L POC WB Ioniz Calcium Lactate Dehydrogenase 336 H 309 H NT-Pro-B Natriuret Pep Albumin 2.9 L Urine Protein Urine Glucose (UA) Urine Ketones Urine Occult Blood Urine RBC Vancomycin Trough 05/12/19 05/12/19 05/12/19 03:03 01:12 01:12 WBC RBC Hgb Hct RDW Gran % Lymph % (Auto) Gran # Lymph # (Auto) Wayne # (Auto) PT 26.9 H INR 2.5 H Carbon Dioxide 20 L Anion Gap 19.0 H POC BUN 32 H BUN 28 H Creatinine 1.3 H POC Creatinine 1.3 H Glucose 278 H POC Glucose 289 H Calcium POC WB Ioniz Calcium 1.06 L Lactate Dehydrogenase NT-Pro-B Natriuret Pep 495.7 H Albumin Urine Protein 100 A Urine Glucose (UA) >=500 A Urine Ketones 20 A Urine Occult Blood 0.2 A Urine RBC 22 H Vancomycin Trough 05/12/19 01:12 WBC 17.4 H RBC Hgb Hct RDW 15.7 H Gran % 91.0 H Lymph % (Auto) 3.2 L Gran # 15.9 H Lymph # (Auto) 0.6 L [place] # (Auto) 1.0 H PT INR Carbon Dioxide Anion Gap POC BUN BUN Creatinine POC Creatinine Glucose POC Glucose Calcium POC WB Ioniz Calcium Lactate Dehydrogenase NT-Pro-B Natriuret Pep Albumin Urine Protein Urine Glucose (UA) Urine Ketones Urine Occult Blood Urine RBC Vancomycin Trough Meds: Medications Acetaminophen (Tylenol) 650 mg PO Q6HP PRN PRN Reason: PAIN/FEVER > 101 Albuterol/Ipratropium (Duoneb) 3 ml NEB Q6HRT [facility] Amiodarone HCl (Cordarone) 200 mg PO QAMCC [facility] Atorvastatin Calcium (Lipitor) 40 mg PO DAILY [facility] Azithromycin (Zithromax) 250 mg PO DAILY [facility]; Protocol Stop: 05/16/19 09:01 Brimonidine Tartrate (Alphagan P Ophth Drops) 1 gtt OU TID [facility] Dextrose (Dextrose 50%) 0 ml IV UD PRN PRN Reason: Hypoglycemia Diagnostic Test (Pha) (Accu-Chek) 1 each FS ACHS [facility] Gabapentin (Neurontin) 100 mg PO BID [facility] Glucose (Insta-Glucose) 15 gm PO PRN PRN PRN Reason: Hypoglycemia Piperacillin Sod/Tazobactam (Sod 4.5 gm/ Dextrose) 50 mls @ 100 mls/hr IV Q8H [facility]; Protocol Insulin Human Lispro (Humalog) 0 unit SQ ACHS [facility]; Protocol Iron Carb/Multivit/Ore Fielder/Folic Acid (Multivitamin W/Minerals) 1 tab PO DAILY [facility] Metoprolol Tartrate (Lopressor) 50 mg PO BID [facility] Mupirocin (Bactroban Oint 2%) 1 dose NARES BID [facility] Naloxone HCl (Narcan) 0.1 mg IV Q2MIN PRN PRN Reason: Opiate Reversal Ondansetron HCl (Zofran) 4 mg IV Q4HP PRN PRN Reason: Nausea And Vomiting Pantoprazole Sodium (Protonix) 40 mg PO QAMAC [facility] Sodium Chloride (Saline Flush) 10 ml IV Q8 [facility] Vancomycin HCl (Vancomycin Per Pharmacy) 1 order IV UD [facility]; Protocol Warfarin Sodium (Coumadin Per Pharmacy) 1 order PO UD [facility] Medical - PN: A/P - Time Spent With Patient Total time spent is greater than 50% in coordination of care (as documented) at patient's floor/unit and/or counseling patient: - Narrative A/P Narrative: A/P Sepsis Pneumonia DM HTN Atrial Fibrillation h/o High anion gap acidosis Renal failure, acute vs chronic Chronic Anticoagulation Acute hypoxic respiratory failure Obstructive Sleep Apnea Plan xfer to med surg status Oxygen to maintain oxygen saturation more than 90 Trend labs Continue anticoagulation patient is presently in sinus rhythm on Coumadin IV vancomycin and Zosyn azithromycin, follow blood cultures and sputum cultures de-escalate antibiotic therapy depending on cultures OT PT ST evaluation DVT on coumadin Full code carb consistent, cardiac diet. Anticipate d/c in AM if off oxygen and feels better. Medical - PN: Qual - VTE Deep Vein Thrombosis/Pulmonary Embolism Present on Admission: No
[2019-05-13] MEDS: VANCOMYCIN 1,500 MG in 0.9 % SODIUM CHLORIDE 500 ML IV SCH (10:10)
[2019-05-13] MEDS ORDERED: IPRATROPIUM/ALBUTEROL 3 ML AMPUL.NEB NEB SCH (13:00)
--- NOTE | 2019-05-13 13:46 | Internal Med Progress Note ---
Medical - PN: Subj Patient information: Note initiated : 05/13/19 at 1:40 pm Service Date, if different from initiated Date: [] Patient: Will Elizalde a 73 y/o M admitted on 05/12/19 for found on floor moaning. Chief Complaint: [] Interval history: Mr. Elizalde is a 77 year old M individual with multiple medical problems hard of hearing presented to the emergency room early this morning because of cough and weakness that has been bothering him for 1 day. The patient is hard of hearing and history is predominately by direct questioning. Patient's was not by the bedside The patient notes that he was here to visit family, he is a resident of [place], he does have a history of atrial fibrillation diabetes he takes Coumadin. The patient has been having cough for the last 1 day, denies any sick contacts denies any mucus production. Subjective sensation of weakness some chills denies any obvious fever his condition progressively got worse, he was confused and yesterday it seems he fell to the ground or slip to the ground when he woke up during sleep. His family therefore brought him to the emergency room for further evaluation. The patient denies any headache changes in vision difficulty in swallowing denies any chest pain does have some cough week and therefore some shortness of breath on exertion, no nausea no vomiting no diarrhea no abdominal pain no new skin rashes has chronic back pain has a spinal cord stimulator. Has easy bruising he takes Coumadin, denies any obvious bleeding from any site. Denies any urinary complaints. On presenting to the emergency room patient was febrile, blood pressure stable mildly tachypneic, needing oxygen 5 to 6 L nasal cannula to maintain oxygen saturation more than 90. Labs showed leukocytosis WBC count of 17.4 hemoglobin 14.5 platelets 219 lactic acid 1.8 INR 2.5 chemistry showed renal function of 1.3 BUN 28 anion gap of 19 glucose 278 sodium 136 potassium 4.8 bicarbonate 20 BNP was 495, troponin is negative procalcitonin is 0.12. ABG done shows pH of 7.38 PCO2 43 PO2 of 56 Patient chest x-ray shows diffuse infiltrates left more than right. Head CT was negative, chest CT shows bilateral airspace disease mild cardiomegaly. Mycoplasma and strep pneumonia antigen are negative EKG shows sinus rhythm left axis Patient admitted to telemetry status for further management 07/07 Patient seen and examined, no acute overnight events. Tolerating p.o. diet well feeling better. On 2 to 3 L of oxygen, air entry is better according to the patient Labs show improvement in WBC count, he is making good urine Patient is a viral panel is negative, MRSA screen is positive. He is +2795 mL since admission Patient is stable to be transferred to medical status. - Constitutional Vitals: Vital Signs Temp Pulse Resp BP Pulse Ox 98.9 F 66 18 148/82 92 05/13/19 12:04 05/13/19 13:17 05/13/19 13:17 05/13/19 12:04 05/13/19 12:04 Period Temp Pulse Resp BP Sys/Ortega Pulse Ox Last 24 Hr 97.5 F-98.9 F 63-87 14-20 123-148/65-82 90-97 Intake and Output 05/12/19 05/13/19 05/13/19 21:59 05:59 13:59 Intake Total 1050 505 410 Output Total 1150 750 25 Balance -100 -245 385 Weight 108.998 kg Intake & Output: Intake & Output 05/12/19 05/13/19 05/13/19 21:59 05:59 13:59 Intake Total 1050 505 410 Output Total 1150 750 25 Balance -100 -245 385 Weight 108.998 kg Intake: IV 1050 505 50 Lactated Ringers 1,000 ml @ 250 1000 mls/hr IV .Q4H [facility] Rx#: [id number] Zosyn 4.5 gm In Dextrose 5% in 50 5 50 Water 50 ml @ 100 mls/hr IV Q8H [facility] Rx#:[id number] Vancomycin 1,500 mg In Sodium 500 Chloride 0.9% 500 ml @ 333.3 mls/hr IV Q12H [facility] Rx#: [id number] Oral 360 Output: Urine Catheter Amount 1150 750 Void Amount 25 Other: Meal Breakfast Percent of Meal Consumed 100% Feeding Ability Independent Urine Appearance Cloudy Clear Uretheral (Marc) Clear Clear Clear Urine Color Tea Colored Tea Colored Dark Yellow Uretheral (Marc) Dark Yellow Dark Yellow Dark Yellow Light Consuelo Light Consuelo Urine Odor Strong Normal Uretheral (Marc) Normal Stool Size Copious Copious Stool Color Brown Brown Stool Consistency Soft Soft Formed Formed # Voids 1 # Bowel Movements 1 Exam: General: Alert, Awake, No acute Distress Eyes/N/T: EOMI, Head/Neck: neck supple, CV: RRR, No murmurs, Pulm: Abd: soft, nontender, +BS x4 Ext: no clubbing/cyanosis/edema Neuro: Alert, no focal deficits, moves all extremities, Skin: warm/dry Medical - PN: Obj Da - Labs CBC & Chem 7: 05/13/19 03:43 05/13/19 03:43 Labs: Abnormal Lab Results 05/13/19 05/13/19 05/13/19 08:00 03:43 03:43 WBC 12.2 H RBC 4.04 L Hgb 12.3 L Hct 37.9 L RDW 16.4 H Gran % 83.9 H Lymph % (Auto) 7.3 L Gran # 10.2 H Lymph # (Auto) 0.9 L [place] # (Auto) 1.0 H PT 39.1 H INR 4.1 H Carbon Dioxide Anion Gap POC BUN BUN Creatinine POC Creatinine Glucose POC Glucose Calcium POC WB Ioniz Calcium Lactate Dehydrogenase NT-Pro-B Natriuret Pep Albumin Urine Protein Urine Glucose (UA) Urine Ketones Urine Occult Blood Urine RBC Vancomycin Trough 22.5 H* 05/13/19 05/12/19 05/12/19 03:43 09:48 09:48 WBC 20.6 H RBC Hgb Hct RDW 16.0 H Gran % 92.6 H Lymph % (Auto) 2.7 L Gran # 19.1 H Lymph # (Auto) 0.6 L [place] # (Auto) 1.0 H PT INR Carbon Dioxide Anion Gap POC BUN BUN 28 H 26 H Creatinine 1.3 H POC Creatinine Glucose 184 H 354 H POC Glucose Calcium 7.9 L 8.3 L POC WB Ioniz Calcium Lactate Dehydrogenase 336 H 309 H NT-Pro-B Natriuret Pep Albumin 2.9 L Urine Protein Urine Glucose (UA) Urine Ketones Urine Occult Blood Urine RBC Vancomycin Trough 05/12/19 05/12/19 05/12/19 03:03 01:12 01:12 WBC RBC Hgb Hct RDW Gran % Lymph % (Auto) Gran # Lymph # (Auto) [place] # (Auto) PT 26.9 H INR 2.5 H Carbon Dioxide 20 L Anion Gap 19.0 H POC BUN 32 H BUN 28 H Creatinine 1.3 H POC Creatinine 1.3 H Glucose 278 H POC Glucose 289 H Calcium POC WB Ioniz Calcium 1.06 L Lactate Dehydrogenase NT-Pro-B Natriuret Pep 495.7 H Albumin Urine Protein 100 A Urine Glucose (UA) >=500 A Urine Ketones 20 A Urine Occult Blood 0.2 A Urine RBC 22 H Vancomycin Trough 05/12/19 01:12 WBC 17.4 H RBC Hgb Hct RDW 15.7 H Gran % 91.0 H Lymph % (Auto) 3.2 L Gran # 15.9 H Lymph # (Auto) 0.6 L [place] # (Auto) 1.0 H PT INR Carbon Dioxide Anion Gap POC BUN BUN Creatinine POC Creatinine Glucose POC Glucose Calcium POC WB Ioniz Calcium Lactate Dehydrogenase NT-Pro-B Natriuret Pep Albumin Urine Protein Urine Glucose (UA) Urine Ketones Urine Occult Blood Urine RBC Vancomycin Trough Meds: Medications Acetaminophen (Tylenol) 650 mg PO Q6HP PRN PRN Reason: PAIN/FEVER > 101 Albuterol/Ipratropium (Duoneb) 3 ml NEB Q6HRT [facility] Last Admin: 05/13/19 13:07 Dose: 3 ml Documented by: Amiodarone HCl (Cordarone) 200 mg PO QAC [facility] Atorvastatin Calcium (Lipitor) 40 mg PO DAILY [facility] Azithromycin (Zithromax) 250 mg PO DAILY [facility]; Protocol Stop: 05/16/19 09:01 Brimonidine Tartrate (Alphagan P Ophth Drops) 1 gtt OU TID [facility] Dextrose (Dextrose 50%) 0 ml IV UD PRN PRN Reason: Hypoglycemia Diagnostic Test (Pha) (Accu-Chek) 1 each FS [facility] Last Admin: 05/13/19 12:00 Dose: 1 each Documented by: Gabapentin (Neurontin) 100 mg PO BID [facility] Glucose (Insta-Glucose) 15 gm PO PRN PRN PRN Reason: Hypoglycemia Piperacillin Sod/Tazobactam (Sod 4.5 gm/ Dextrose) 50 mls @ 100 mls/hr IV Q8H [facility]; Protocol Insulin Human Lispro (Humalog) 0 unit SQ [facility]; Protocol Last Admin: 05/13/19 12:24 Dose: 4 units Documented by: Iron Carb/Multivit/Harris/Folic Acid (Multivitamin W/Minerals) 1 tab PO DAILY [facility] Metoprolol Tartrate (Lopressor) 50 mg PO BID [facility] Mupirocin (Bactroban Oint 2%) 1 dose NARES BID [facility] Naloxone HCl (Narcan) 0.1 mg IV Q2MIN PRN PRN Reason: Opiate Reversal Ondansetron HCl (Zofran) 4 mg IV Q4HP PRN PRN Reason: Nausea And Vomiting Pantoprazole Sodium (Protonix) 40 mg PO QAMAC [facility] Sodium Chloride (Saline Flush) 10 ml IV Q8 [facility] Vancomycin HCl (Vancomycin Per Pharmacy) 1 order IV UD [facility]; Protocol Warfarin Sodium (Coumadin Per Pharmacy) 1 order PO UD [facility] Medical - PN: A/P - Time Spent With Patient Total time spent is greater than 50% in coordination of care (as documented) at patient's floor/unit and/or counseling patient: - Narrative A/P Narrative: A: *Sepsis *Pneumonia: *DM *HTN *Atrial Fibrillation h/o -Chronic Anticoagulation and amio/BB *High anion gap acidosis *JEANNETTE on likely CKD: improved *Acute hypoxic respiratory failure *Obstructive Sleep Apnea *GERD: Plan: -Oxygen to maintain oxygen saturation more than 90, wean off -Trend labs -Continue anticoagulation patient is presently in sinus rhythm on Coumadin; cont amio/BB -IV vancomycin and Zosyn azithromycin, follow blood cultures and sputum cultures de-escalate antibiotic therapy depending on cultures -OT PT ST evaluation -ppx: DVT on coumadin per pharmacy/home ppi Full code Medical - PN: Qual - VTE Deep Vein Thrombosis/Pulmonary Embolism Present on Admission: No
--- NOTE | 2019-05-13 13:48 | Discharge Summary ---
Medical - DS: Prov Patient information: Note initiated : 05/13/19 at 1:46 pm Service Date, if different from initiated Date: [] Patient: Will Elizalde 73 y/o M admitted on 05/12/19 for found on floor moaning. Chief Complaint: [] Date of admission: 05/12/19 03:48 Discharge date: 05/15/19 Medical - DS: Meds - Discharge Medications Prescriptions: Furosemide [Lasix] 40 mg PO DAILY #1 tab Levofloxacin [Levaquin] 750 mg PO DAILY #4 tab Active and Home Medications: Home Medications Acetaminophen [Tylenol] 1,000 mg PO Q6HP PRN 05/12/19 [History Confirmed 05/12/19 Last Taken Unknown] Amiodarone HCl [Cordarone] 200 mg PO QAMCC 05/12/19 [History Confirmed 05/12/19 Last Taken 05/11/19] Atorvastatin [Lipitor] 40 mg PO DAILY 05/12/19 [History Confirmed 05/12/19 Last Taken 05/11/19] Brimonidine Ophth Drops [Alphagan P Ophth Drops] 1 gtt OU TID 05/12/19 [History Confirmed 05/12/19 Last Taken 05/11/19] Diclofenac Sodium [Voltaren] 100 gm TP QID 05/12/19 [History Confirmed 05/12/19 Last Taken Unknown] Gabapentin [Neurontin] 100 mg PO BID 05/12/19 [History Confirmed 05/12/19 Last Taken Unknown] Insulin NPH, Human [HumaLIN N] 50 unit SQ HS 05/12/19 [History Confirmed 05/12/19 Last Taken 05/11/19] Insulin NPH, Human [HumaLIN N] 54 unit SQ QAM 05/12/19 [History Confirmed 05/12/19 Last Taken 05/11/19] Lisinopril [Zestril] 20 mg PO BID 05/12/19 [History Confirmed 05/12/19 Last Taken 05/11/19] Metoprolol Tartrate [Lopressor] 50 mg PO BID 05/12/19 [History Confirmed 05/12/19 Last Taken 05/11/19] Multivitamin [One Daily] 1 each PO DAILY 05/12/19 [History Confirmed 05/12/19 Last Taken Unknown] Pantoprazole [Protonix] 40 mg PO QAMAC 05/12/19 [History Confirmed 05/12/19 Last Taken Unknown] Warfarin [Coumadin] 4 mg PO DAILY 05/12/19 [History Confirmed 05/12/19 Last Taken 05/11/19] Medical - DS: Hosp Hospital course: Mr. Elizalde is a 73 year old M Mr. Elizalde is a 77 year old M individual with multiple medical problems hard of hearing presented to the emergency room early this morning because of cough and weakness that has been bothering him for 1 day. The patient is hard of hearing and history is predominately by direct questioning. Patient's was not by the bedside The patient notes that he was here to visit family, he is a resident of [place], he does have a history of atrial fibrillation diabetes he takes Coumadin. The patient has been having cough for the last 1 day, denies any sick contacts denies any mucus production. Subjective sensation of weakness some chills denies any obvious fever his condition progressively got worse, he was confused and yesterday it seems he fell to the ground or slip to the ground when he woke up during sleep. His family therefore brought him to the emergency room for further evaluation. The patient denies any headache changes in vision difficulty in swallowing denies any chest pain does have some cough week and therefore some shortness of breath on exertion, no nausea no vomiting no diarrhea no abdominal pain no new skin rashes has chronic back pain has a spinal cord stimulator. Has easy bruising he takes Coumadin, denies any obvious bleeding from any site. Denies any urinary complaints. On presenting to the emergency room patient was febrile, blood pressure stable mildly tachypneic, needing oxygen 5 to 6 L nasal cannula to maintain oxygen saturation more than 90. Labs showed leukocytosis WBC count of 17.4 hemoglobin 14.5 platelets 219 lactic acid 1.8 INR 2.5 chemistry showed renal function of 1.3 BUN 28 anion gap of 19 glucose 278 sodium 136 potassium 4.8 bicarbonate 20 BNP was 495, troponin is negative procalcitonin is 0.12. ABG done shows pH of 7.38 PCO2 43 PO2 of 56 Patient chest x-ray shows diffuse infiltrates left more than right. Head CT was negative, chest CT shows bilateral airspace disease mild cardiomegaly. Mycoplasma and strep pneumonia antigen are negative EKG shows sinus rhythm left axis Patient admitted to telemetry status for further management 05/13 Patient seen and examined, no acute overnight events. Tolerating p.o. diet well feeling better. On 2 to 3 L of oxygen, air entry is better according to the patient Labs show improvement in WBC count, he is making good urine Patient is a viral panel is negative, MRSA screen is positive. He is +2795 mL since admission Patient is stable to be transferred to medical status. 05/15 Minimal cough. Denies shortness of breath at rest. Feeling better was on 1 L of oxygen overnight. Taken off oxygen this morning at shift change. No other complaints. At lunchtime date: Diuresed quite well this morning. He is satting 93% on room air. Stable for discharge. Follow-up closely with primary care provider Discharge diagnosis: Sepsis pneumonia acute kidney injury toxic respiratory failure Secondary discharge diagnosis: Diabetes hypertension H fibrillation GERD TIFFANY - Time Spent with Patient Total time spent providing and/or coordinating discharge services: Greater than 30 minutes Medical - DS: Exam - Constitutional Vitals: Vital Signs Temp Pulse Pulse Resp BP BP Pulse Ox 05/13/19 13:17 66 18 05/13/19 12:04 98.9 F 68 18 148/82 92 05/13/19 10:52 87 92 05/13/19 07:40 68 16 94 05/13/19 07:32 97.5 F 20 141/65 90 05/13/19 07:28 65 18 95 05/13/19 04:21 97.5 F 63 16 140/76 94 05/13/19 00:29 98.2 F 94 05/12/19 22:15 98.4 F 123/66 97 05/12/19 22:11 98.4 F 66 14 123/66 97 05/12/19 19:36 66 16 05/12/19 16:43 98.1 F 134/67 90 Intake and Output 05/12/19 05/13/19 05/13/19 21:59 05:59 13:59 Intake Total 1050 505 410 Output Total 1150 750 25 Balance -100 -245 385 Intake: IV 1050 505 50 Lactated Ringers 1,000 ml @ 250 1000 mls/hr IV .Q4H [facility] Rx#: [id number] Zosyn 4.5 gm In Dextrose 5% in 50 5 50 Water 50 ml @ 100 mls/hr IV Q8H [facility] Rx#:[id number] Vancomycin 1,500 mg In Sodium 500 Chloride 0.9% 500 ml @ 333.3 mls/hr IV Q12H [facility] Rx#: [id number] Oral 360 Output: Urine Catheter Amount 1150 750 Void Amount 25 Other: Meal Breakfast Percent of Meal Consumed 100% Feeding Ability Independent Urine Appearance Cloudy Clear Uretheral (Marc) Clear Clear Clear Urine Color Tea Colored Tea Colored Dark Yellow Uretheral (Marc) Dark Yellow Dark Yellow Dark Yellow Light Consuelo Light Consuelo Urine Odor Strong Normal Uretheral (Marc) Normal Stool Size Copious Copious Stool Color Brown Brown Stool Consistency Soft Soft Formed Formed # Voids 1 # Bowel Movements 1 Weight 108.998 kg Medical - DS: Data Labs on day of discharge: Labs from last 24 hours 05/13/19 05/13/19 05/13/19 08:00 08:00 03:43 WBC 12.2 H RBC 4.04 L Hgb 12.3 L Hct 37.9 L MCV 93.7 MCH 30.5 MCHC 32.5 RDW 16.4 H Plt Count 199 MPV 9.1 Gran % 83.9 H Lymph % (Auto) 7.3 L [place] % (Auto) 8.3 Eos % (Auto) 0.3 Baso % (Auto) 0.2 Gran # 10.2 H Lymph # (Auto) 0.9 L [place] # (Auto) 1.0 H Eos # (Auto) 0 Baso # (Auto) 0 Differential Comment PT INR Sodium Potassium Chloride Carbon Dioxide Anion Gap BUN Creatinine GFR Calculation BUN/Creatinine Ratio Glucose Uric Acid Calcium Phosphorus Magnesium Total Bilirubin Direct Bilirubin GGT AST ALT Alkaline Phosphatase Lactate Dehydrogenase Total Protein Albumin Globulin Albumin/Globulin Ratio Triglycerides Vancomycin Trough 22.5 H* Cancelled 05/13/19 05/13/19 05/13/19 03:43 03:43 03:43 WBC RBC Hgb Hct MCV MCH MCHC RDW Plt Count MPV Gran % Lymph % (Auto) [place] % (Auto) Eos % (Auto) Baso % (Auto) Gran # Lymph # (Auto) [place] # (Auto) Eos # (Auto) Baso # (Auto) Differential Comment PT 39.1 H INR 4.1 H Sodium 136 Cancelled Potassium 4.4 Cancelled Chloride 102 Cancelled Carbon Dioxide 23 Cancelled Anion Gap 11.0 Cancelled BUN 28 H Cancelled Creatinine 1.1 Cancelled GFR Calculation 67 Cancelled BUN/Creatinine Ratio Cancelled Glucose 184 H Cancelled Uric Acid 3.2 Cancelled Calcium 7.9 L Cancelled Phosphorus 3.1 Cancelled Magnesium 2.1 Cancelled Total Bilirubin 0.4 Cancelled Direct Bilirubin < 0.2 Cancelled GGT 16 Cancelled AST 31 Cancelled ALT 23 Cancelled Alkaline Phosphatase 80 Cancelled Lactate Dehydrogenase 336 H Cancelled Total Protein 5.9 Cancelled Albumin 2.9 L Cancelled Globulin 3.0 Cancelled Albumin/Globulin Ratio 1.0 Cancelled Triglycerides 67 Cancelled Vancomycin Trough 05/13/19 05/13/19 03:43 03:43 WBC Cancelled RBC Cancelled Hgb Cancelled Hct Cancelled MCV Cancelled MCH Cancelled MCHC Cancelled RDW Cancelled Plt Count Cancelled MPV Cancelled Gran % Cancelled Lymph % (Auto) Cancelled [place] % (Auto) Cancelled Eos % (Auto) Cancelled Baso % (Auto) Cancelled Gran # Cancelled Lymph # (Auto) Cancelled [place] # (Auto) Cancelled Eos # (Auto) Cancelled Baso # (Auto) Cancelled Differential Comment Cancelled PT Cancelled INR Cancelled Sodium Potassium Chloride Carbon Dioxide Anion Gap BUN Creatinine GFR Calculation BUN/Creatinine Ratio Glucose Uric Acid Calcium Phosphorus Magnesium Total Bilirubin Direct Bilirubin GGT AST ALT Alkaline Phosphatase Lactate Dehydrogenase Total Protein Albumin Globulin Albumin/Globulin Ratio Triglycerides Vancomycin Trough Preliminary micro results at discharge 05/12/19 01:12 Blood Culture - Preliminary Blood 05/12/19 01:27 Blood Culture - Preliminary Blood Medical - DS: A/P - Patient/Caregiver Discharge Instructions Activity: increase activity as tolerated Diet: Consistent Carbohydrate Prescriptions: Levofloxacin [Levaquin] 750 mg PO DAILY #4 tab - Follow up Plan Disposition: Home, Self-Care Prognosis: Fair Rehab Potential: Fair Overall status at discharge: patient is progressing back to baseline Medical - DS: Qual - VTE Deep Vein Thrombosis/Pulmonary Embolism Present on Admission: No
[2019-05-13] MEDS ORDERED: IPRATROPIUM/ALBUTEROL 3 ML AMPUL.NEB NEB PRN (14:52)
[2019-05-13] MEDS ORDERED: HEPARIN 5,000 UNIT/ML VIAL SQ SCH (21:00)
[2019-05-13] MEDS: INSULIN NPH, HUMAN 1 UNIT/0.01 ML UNIT SQ SCH (21:03)
[2019-05-14] MEDS: ACETAMINOPHEN 325 MG TABLET PO PRN (05:18)
[2019-05-14] MEDS: PIPERACILLIN SODIUM/TAZOBACTAM 4.5 GM in DEXTROSE 5% IN WATER 50 ML IV SCH ×3 (05:18→21:09)
[2019-05-14] MEDS: 0.9 % SODIUM CHLORIDE 10 ML SYRINGE IV SCH ×3 (05:18→23:29)
[2019-05-14 05:42] LABS: INR 3.8 (0.9-1.1); Prothrombin Time 37.2 sec (11.9-14.5)
[2019-05-14 06:16] LABS: ALT/SGPT 31 U/l (0-40); AST/SGOT 28 U/l (0-37); Alkaline Phosphatase 75 U/L (39-117); Bilirubin,Direct < 0.2 mg/dL (0.0-0.3); Bilirubin,Total 0.6 mg/dL (0.0-1.0); Blood Urea Nitrogen 29 mg/dl (8-23); Calcium 8.1 mg/dl (8.6-10.4); Carbon Dioxide 27 mmol/L (22-30); Chloride 105 mmol/L (96-108); Glomerular Filtration Rate 60; Glucose 101 mg/dL (70-105); Lactate Dehydrogenase 285 U/L (94-250); Magnesium 2.1 mg/dL (1.6-2.5); Phosphorous 2.6 mg/dL (2.7-4.5); Potassium 4.2 mmol/L (3.3-5.1); Sodium 142 mmol/L (133-145); Triglycerides 99 mg/dl (<150); Uric Acid 3.5 mg/dL (2.5-8.0)
--- NOTE | 2019-05-14 07:12 | Internal Med Progress Note ---
Medical - PN: Subj Patient information: Note initiated : 05/14/19 at 7:06 am Service Date, if different from initiated Date: [] Patient: Will Elizalde a 73 y/o M admitted on 05/12/19 for found on floor moaning. Chief Complaint: [] Interval history: Mr. Elizalde is a 77 year old M individual with multiple medical problems hard of hearing presented to the emergency room early this morning because of cough and weakness that has been bothering him for 1 day. The patient is hard of hearing and history is predominately by direct questioning. Patient's was not by the bedside The patient notes that he was here to visit family, he is a resident of [place], he does have a history of atrial fibrillation diabetes he takes Coumadin. The patient has been having cough for the last 1 day, denies any sick contacts denies any mucus production. Subjective sensation of weakness some chills denies any obvious fever his condition progressively got worse, he was confused and yesterday it seems he fell to the ground or slip to the ground when he woke up during sleep. His family therefore brought him to the emergency room for further evaluation. The patient denies any headache changes in vision difficulty in swallowing denies any chest pain does have some cough week and therefore some shortness of breath on exertion, no nausea no vomiting no diarrhea no abdominal pain no new skin rashes has chronic back pain has a spinal cord stimulator. Has easy bruising he takes Coumadin, denies any obvious bleeding from any site. Denies any urinary complaints. On presenting to the emergency room patient was febrile, blood pressure stable mildly tachypneic, needing oxygen 5 to 6 L nasal cannula to maintain oxygen saturation more than 90. Labs showed leukocytosis WBC count of 17.4 hemoglobin 14.5 platelets 219 lactic acid 1.8 INR 2.5 chemistry showed renal function of 1.3 BUN 28 anion gap of 19 glucose 278 sodium 136 potassium 4.8 bicarbonate 20 BNP was 495, troponin is negative procalcitonin is 0.12. ABG done shows pH of 7.38 PCO2 43 PO2 of 56 Patient chest x-ray shows diffuse infiltrates left more than right. Head CT was negative, chest CT shows bilateral airspace disease mild cardiomegaly. Mycoplasma and strep pneumonia antigen are negative EKG shows sinus rhythm left axis Patient admitted to telemetry status for further management 07/07 Patient seen and examined, no acute overnight events. Tolerating p.o. diet well feeling better. On 2 to 3 L of oxygen, air entry is better according to the patient Labs show improvement in WBC count, he is making good urine Patient is a viral panel is negative, MRSA screen is positive. He is +2795 mL since admission Patient is stable to be transferred to medical status. 05/14 Has cough but unable to produce sputum. Denies shortness of breath at this time. Is on 1 liter of nasal cannula currently. Slept okay. Complains of constipation and chills but no other complaints. Review of Systems: denies headache/fever/nausea/vomiting/chest or abdominal pain/diarrhea. Otherwise see above. - Constitutional Vitals: Vital Signs Temp Pulse Resp BP Pulse Ox 98.4 F 75 18 116/70 95 05/14/19 06:29 05/14/19 06:29 05/14/19 06:29 05/14/19 06:29 05/14/19 06:29 Period Temp Pulse Resp BP Sys/Ortega Pulse Ox Last 24 Hr 97.5 F-98.9 F 60-87 12-24 99-148/61-82 2-95 Intake and Output 05/13/19 05/14/19 05/14/19 21:59 05:59 13:59 Intake Total 840 650 Output Total 525 300 Balance 315 350 Weight 111.584 kg Intake & Output: Intake & Output 05/13/19 05/14/19 05/14/19 21:59 05:59 13:59 Intake Total 840 650 Output Total 525 300 Balance 315 350 Weight 111.584 kg Intake: IV 50 50 Zosyn 4.5 gm In Dextrose 5% in 50 50 Water 50 ml @ 100 mls/hr IV Q8H [facility] Rx#:[id number] Oral 790 600 Output: Void Amount 525 300 Other: Meal HS Snack Percent of Meal Consumed 50% Feeding Ability Independent Urine Appearance Clear Clear Urine Color Bright Yellow Dark Yellow Urine Odor Strong Normal # Voids 1 Exam: General: Alert, Awake, No acute Distress Eyes/N/T: EOMI, Head/Neck: neck supple, CV: RRR, No murmurs, Pulm: bibase rales, no wheezing Abd: soft, nontender, +BS x4 Ext: no clubbing/cyanosis, 1+ b/l LE edema Neuro: Alert, no focal deficits, moves all extremities, Skin: warm/dry Medical - PN: Obj Da - Labs CBC & Chem 7: 05/13/19 03:43 05/14/19 04:28 Labs: Abnormal Lab Results 05/14/19 05/14/19 05/13/19 04:28 04:28 08:00 WBC RBC Hgb Hct RDW Gran % Lymph % (Auto) Gran # Lymph # (Auto) [place] # (Auto) PT 37.2 H INR 3.8 H Carbon Dioxide Anion Gap POC BUN BUN 29 H Creatinine POC Creatinine Glucose POC Glucose Calcium 8.1 L POC WB Ioniz Calcium Phosphorus 2.6 L Lactate Dehydrogenase 285 H NT-Pro-B Natriuret Pep Albumin 3.0 L Urine Protein Urine Glucose (UA) Urine Ketones Urine Occult Blood Urine RBC Vancomycin Trough 22.5 H* 05/13/19 05/13/19 05/13/19 03:43 03:43 03:43 WBC 12.2 H RBC 4.04 L Hgb 12.3 L Hct 37.9 L RDW 16.4 H Gran % 83.9 H Lymph % (Auto) 7.3 L Gran # 10.2 H Lymph # (Auto) 0.9 L [place] # (Auto) 1.0 H PT 39.1 H INR 4.1 H Carbon Dioxide Anion Gap POC BUN BUN 28 H Creatinine POC Creatinine Glucose 184 H POC Glucose Calcium 7.9 L POC WB Ioniz Calcium Phosphorus Lactate Dehydrogenase 336 H NT-Pro-B Natriuret Pep Albumin 2.9 L Urine Protein Urine Glucose (UA) Urine Ketones Urine Occult Blood Urine RBC Vancomycin Trough 05/12/19 05/12/19 05/12/19 09:48 09:48 03:03 WBC 20.6 H RBC Hgb Hct RDW 16.0 H Gran % 92.6 H Lymph % (Auto) 2.7 L Gran # 19.1 H Lymph # (Auto) 0.6 L [place] # (Auto) 1.0 H PT INR Carbon Dioxide Anion Gap POC BUN BUN 26 H Creatinine 1.3 H POC Creatinine Glucose 354 H POC Glucose Calcium 8.3 L POC WB Ioniz Calcium Phosphorus Lactate Dehydrogenase 309 H NT-Pro-B Natriuret Pep Albumin Urine Protein 100 A Urine Glucose (UA) >=500 A Urine Ketones 20 A Urine Occult Blood 0.2 A Urine RBC 22 H Vancomycin Trough 05/12/19 05/12/19 05/12/19 01:12 01:12 01:12 WBC 17.4 H RBC Hgb Hct RDW 15.7 H Gran % 91.0 H Lymph % (Auto) 3.2 L Gran # 15.9 H Lymph # (Auto) 0.6 L [place] # (Auto) 1.0 H PT 26.9 H INR 2.5 H Carbon Dioxide 20 L Anion Gap 19.0 H POC BUN 32 H BUN 28 H Creatinine 1.3 H POC Creatinine 1.3 H Glucose 278 H POC Glucose 289 H Calcium POC WB Ioniz Calcium 1.06 L Phosphorus Lactate Dehydrogenase NT-Pro-B Natriuret Pep 495.7 H Albumin Urine Protein Urine Glucose (UA) Urine Ketones Urine Occult Blood Urine RBC Vancomycin Trough Meds: Medications Acetaminophen (Tylenol) 650 mg PO Q6HP PRN PRN Reason: PAIN/FEVER > 101 Last Admin: 05/14/19 05:18 Dose: 650 mg Documented by: Albuterol/Ipratropium (Duoneb) 3 ml NEB Q6HP PRN PRN Reason: Shortness Of Breath Or Wheezing Amiodarone HCl (Cordarone) 200 mg PO [facility] Atorvastatin Calcium (Lipitor) 40 mg PO DAILY [facility] Azithromycin (Zithromax) 250 mg PO DAILY [facility]; Protocol Stop: 05/16/19 09:01 Brimonidine Tartrate (Alphagan P Ophth Drops) 1 gtt OU TID [facility] Last Admin: 05/13/19 21:02 Dose: 1 gtt Documented by: Dextrose (Dextrose 50%) 0 ml IV UD PRN PRN Reason: Hypoglycemia Diagnostic Test (Pha) (Accu-Chek) 1 each FS ACHS [facility] Last Admin: 05/13/19 21:02 Dose: 1 each Documented by: Gabapentin (Neurontin) 100 mg PO BID [facility] Last Admin: 05/13/19 21:02 Dose: 100 mg Documented by: Glucose (Insta-Glucose) 15 gm PO PRN PRN PRN Reason: Hypoglycemia Piperacillin Sod/Tazobactam (Sod 4.5 gm/ Dextrose) 50 mls @ 100 mls/hr IV Q8H [facility]; Protocol Last Admin: 05/14/19 05:18 Dose: 100 mls/hr Documented by: Insulin Human Lispro (Humalog) 0 unit SQ ACHS [facility]; Protocol Last Admin: 05/13/19 21:03 Dose: 6 units Documented by: Insulin Human NPH (Humalin N) 50 unit SQ HS [facility] Last Admin: 05/13/19 21:03 Dose: 50 unit Documented by: Insulin Human NPH (Humalin N) 54 unit SQ QAM [facility] Iron Carb/Multivit/Pharmaceutical Plant Operator/Folic Acid (Multivitamin W/Minerals) 1 tab PO DAILY [facility] Metoprolol Tartrate (Lopressor) 50 mg PO BID [facility] Last Admin: 05/13/19 21:24 Dose: 50 mg Documented by: Mupirocin (Bactroban Oint 2%) 1 dose NARES BID [facility] Last Admin: 05/13/19 21:04 Dose: 1 dose Documented by: Naloxone HCl (Narcan) 0.1 mg IV Q2MIN PRN PRN Reason: Opiate Reversal Ondansetron HCl (Zofran) 4 mg IV Q4HP PRN PRN Reason: Nausea And Vomiting Pantoprazole Sodium (Protonix) 40 mg PO QAMAC [facility] Sodium Chloride (Saline Flush) 10 ml IV Q8 [facility] Last Admin: 05/14/19 05:18 Dose: 10 ml Documented by: Vancomycin HCl (Vancomycin Per Pharmacy) 1 order IV UD [facility]; Protocol Warfarin Sodium (Coumadin Per Pharmacy) 1 order PO UD [facility] Medical - PN: A/P - Time Spent With Patient Total time spent is greater than 50% in coordination of care (as documented) at patient's floor/unit and/or counseling patient: - Narrative A/P Narrative: A: *Sepsis: resolved *Pneumonia: myco/strep Ag neg *Acute hypoxic respiratory failure -down to 1L NC *High anion gap acidosis: resolved *JEANNETTE on likely CKD: improved *DM *HTN *Atrial Fibrillation h/o -Chronic Anticoagulation and amio/BB *Obstructive Sleep Apnea *GERD: Plan: -Oxygen to maintain oxygen saturation more than 90, wean off -Trend labs -Continue anticoagulation patient is presently in sinus rhythm on Coumadin; cont amio/BB -IV vancomycin and Zosyn azithromycin, follow blood cultures and sputum cultures de-escalate antibiotic therapy depending on cultures -OT PT ST evaluation -ppx: DVT on coumadin per pharmacy/home ppi Full code Medical - PN: Qual - VTE Deep Vein Thrombosis/Pulmonary Embolism Present on Admission: No
[2019-05-14] MEDS: INSULIN LISPRO 1 UNIT/0.01 ML UNIT SQ SCH ×4 (07:30→21:12)
[2019-05-14] MEDS: PANTOPRAZOLE 40 MG TABLET PO SCH (07:38)
[2019-05-14] MEDS: AMIODARONE HCL 200 MG TABLET PO SCH (07:38)
[2019-05-14] MEDS ORDERED: POLYETHYLENE GLYCOL 3350 17 GM PACKET PO ONE (08:05)
[2019-05-14] MEDS: MULTIVIT,THER IRON,CA,FA & MIN 1 TABLET PO SCH (08:34)
[2019-05-14] MEDS: AZITHROMYCIN 250 MG TABLET PO SCH (08:34)
[2019-05-14] MEDS: ATORVASTATIN 20 MG TABLET PO SCH (08:34)
[2019-05-14] MEDS: METOPROLOL TARTRATE 50 MG TABLET PO SCH ×2 (08:35→21:10)
[2019-05-14] MEDS: MUPIROCIN OINT 2% 22GM NARES SCH ×2 (08:35→21:11)
[2019-05-14] MEDS: BRIMONIDINE OPHTH DROPS 1 GTT BOTTLE 5ML OU SCH ×3 (08:35→21:10)
--- NOTE | 2019-05-14 08:35 | XRay Report ---
CLINICAL INFORMATION: Follow-up CHF COMPARISON: 05/12/2019 FINDINGS: Heart as decreased in size - now mildly enlarged. Pacemaker and leads remain in stable satisfactory position. Mediastinum is unremarkable. Pulmonary vessels have returned to near-normal in caliber. Interstitial edema has nearly resolved with minimal residual in the perihilar region. Small left pleural effusion persists. IMPRESSION: Complete resolution in CHF with minimal residual perihilar edema and small left pleural effusion Interpreted and Authenticated by: Marc Gillespie 05/14/19
[2019-05-14] MEDS ORDERED: VANCOMYCIN 1,500 MG in 0.9 % SODIUM CHLORIDE 500 ML IV SCH (09:00)
[2019-05-14] MEDS: GABAPENTIN 100 MG CAPSULE PO SCH ×2 (09:31→21:16)
[2019-05-14] MEDS: INSULIN NPH, HUMAN 1 UNIT/0.01 ML UNIT SQ SCH ×2 (09:31→21:11)
[2019-05-15] MEDS: PIPERACILLIN SODIUM/TAZOBACTAM 4.5 GM in DEXTROSE 5% IN WATER 50 ML IV SCH (05:23)
[2019-05-15] MEDS: 0.9 % SODIUM CHLORIDE 10 ML SYRINGE IV SCH (05:23)
[2019-05-15] MEDS ORDERED: FUROSEMIDE 40 MG/4 ML VIAL IV ONE (07:18)
--- NOTE | 2019-05-15 07:23 | Internal Med Progress Note ---
Medical - PN: Subj Patient information: Note initiated : 05/15/19 at 7:19 am Service Date, if different from initiated Date: [] Patient: Will Elizalde a 73 y/o M admitted on 05/12/19 for found on floor moaning. Chief Complaint: [] Interval history: Mr. Elizalde is a 77 year old M individual with multiple medical problems hard of hearing presented to the emergency room early this morning because of cough and weakness that has been bothering him for 1 day. The patient is hard of hearing and history is predominately by direct questioning. Patient's was not by the bedside The patient notes that he was here to visit family, he is a resident of [place], he does have a history of atrial fibrillation diabetes he takes Coumadin. The patient has been having cough for the last 1 day, denies any sick contacts denies any mucus production. Subjective sensation of weakness some chills denies any obvious fever his condition progressively got worse, he was confused and yesterday it seems he fell to the ground or slip to the ground when he woke up during sleep. His family therefore brought him to the emergency room for further evaluation. The patient denies any headache changes in vision difficulty in swallowing denies any chest pain does have some cough week and therefore some shortness of breath on exertion, no nausea no vomiting no diarrhea no abdominal pain no new skin rashes has chronic back pain has a spinal cord stimulator. Has easy bruising he takes Coumadin, denies any obvious bleeding from any site. Denies any urinary complaints. On presenting to the emergency room patient was febrile, blood pressure stable mildly tachypneic, needing oxygen 5 to 6 L nasal cannula to maintain oxygen saturation more than 90. Labs showed leukocytosis WBC count of 17.4 hemoglobin 14.5 platelets 219 lactic acid 1.8 INR 2.5 chemistry showed renal function of 1.3 BUN 28 anion gap of 19 glucose 278 sodium 136 potassium 4.8 bicarbonate 20 BNP was 495, troponin is negative procalcitonin is 0.12. ABG done shows pH of 7.38 PCO2 43 PO2 of 56 Patient chest x-ray shows diffuse infiltrates left more than right. Head CT was negative, chest CT shows bilateral airspace disease mild cardiomegaly. Mycoplasma and strep pneumonia antigen are negative EKG shows sinus rhythm left axis Patient admitted to telemetry status for further management 07/07 Patient seen and examined, no acute overnight events. Tolerating p.o. diet well feeling better. On 2 to 3 L of oxygen, air entry is better according to the patient Labs show improvement in WBC count, he is making good urine Patient is a viral panel is negative, MRSA screen is positive. He is +2795 mL since admission Patient is stable to be transferred to medical status. 05/14 Has cough but unable to produce sputum. Denies shortness of breath at this time. Is on 1 liter of nasal cannula currently. Slept okay. Complains of constipation and chills but no other complaints. 05/15 Minimal cough. Denies shortness of breath at rest. Was on 1 L of oxygen overnight. Just taken off oxygen few minutes ago. No other complaints. Review of Systems: denies headache/fever/nausea/vomiting/chest or abdominal pain/diarrhea. Otherwise see above. - Constitutional Vitals: Vital Signs Temp Pulse Resp BP Pulse Ox 97.3 F 63 18 125/87 92 05/15/19 06:56 05/15/19 06:56 05/15/19 06:56 05/15/19 06:56 05/15/19 06:56 Period Temp Pulse Resp BP Sys/Ortega Pulse Ox Last 24 Hr 97.3 F-98.7 F 60-82 18-24 110-165/63-87 89-94 Intake and Output 05/14/19 05/15/19 05/15/19 21:59 05:59 13:59 Intake Total 560 200 Output Total 625 300 300 Balance -65 -100 -300 Weight 110.223 kg Intake & Output: Intake & Output 05/14/19 05/15/19 05/15/19 21:59 05:59 13:59 Intake Total 560 200 Output Total 625 300 300 Balance -65 -100 -300 Weight 110.223 kg Intake: IV 100 Zosyn 4.5 gm In Dextrose 5% in 100 Water 50 ml @ 100 mls/hr IV Q8H [facility] Rx#:[id number] Oral 460 200 Output: Void Amount 625 300 300 Other: Meal Dinner HS Snack Percent of Meal Consumed 100% 100% Feeding Ability Independent Independent Urine Appearance Clear Clear Urine Color Bright Yellow Pale Dark Yellow Urine Odor Normal Exam: General: Alert, Awake, No acute Distress Eyes/N/T: EOMI, Head/Neck: neck supple, CV: RRR, No murmurs, Pulm: mild bibase rales, no wheezing Abd: soft, nontender, +BS x4 Ext: no clubbing/cyanosis, 1+ b/l LE edema Neuro: Alert, no focal deficits, moves all extremities, Skin: warm/dry Medical - PN: Obj Da - Labs CBC & Chem 7: 05/13/19 03:43 05/14/19 04:28 Labs: Abnormal Lab Results 05/14/19 05/14/19 05/13/19 04:28 04:28 08:00 WBC RBC Hgb Hct RDW Gran % Lymph % (Auto) Gran # Lymph # (Auto) [place] # (Auto) PT 37.2 H INR 3.8 H BUN 29 H Creatinine Glucose Calcium 8.1 L Phosphorus 2.6 L Lactate Dehydrogenase 285 H Albumin 3.0 L Vancomycin Trough 22.5 H* 05/13/19 05/13/19 05/13/19 03:43 03:43 03:43 WBC 12.2 H RBC 4.04 L Hgb 12.3 L Hct 37.9 L RDW 16.4 H Gran % 83.9 H Lymph % (Auto) 7.3 L Gran # 10.2 H Lymph # (Auto) 0.9 L [place] # (Auto) 1.0 H PT 39.1 H INR 4.1 H BUN 28 H Creatinine Glucose 184 H Calcium 7.9 L Phosphorus Lactate Dehydrogenase 336 H Albumin 2.9 L Vancomycin Trough 05/12/19 05/12/19 09:48 09:48 WBC 20.6 H RBC Hgb Hct RDW 16.0 H Gran % 92.6 H Lymph % (Auto) 2.7 L Gran # 19.1 H Lymph # (Auto) 0.6 L [place] # (Auto) 1.0 H PT INR BUN 26 H Creatinine 1.3 H Glucose 354 H Calcium 8.3 L Phosphorus Lactate Dehydrogenase 309 H Albumin Vancomycin Trough Meds: Medications Acetaminophen (Tylenol) 650 mg PO Q6HP PRN PRN Reason: PAIN/FEVER > 101 Last Admin: 05/14/19 05:18 Dose: 650 mg Documented by: Albuterol/Ipratropium (Duoneb) 3 ml NEB Q6HP PRN PRN Reason: Shortness Of Breath Or Wheezing Amiodarone HCl (Cordarone) 200 mg PO [facility] Last Admin: 05/14/19 07:38 Dose: 200 mg Documented by: Atorvastatin Calcium (Lipitor) 40 mg PO DAILY [facility] Last Admin: 05/14/19 08:34 Dose: 40 mg Documented by: Azithromycin (Zithromax) 250 mg PO DAILY [facility]; Protocol Stop: 05/16/19 09:01 Last Admin: 05/14/19 08:34 Dose: 250 mg Documented by: Brimonidine Tartrate (Alphagan P Ophth Drops) 1 gtt OU TID [facility] Last Admin: 05/14/19 21:10 Dose: 1 gtt Documented by: Dextrose (Dextrose 50%) 0 ml IV UD PRN PRN Reason: Hypoglycemia Diagnostic Test (Pha) (Accu-Chek) 1 each FS [facility] Last Admin: 05/14/19 21:11 Dose: 1 each Documented by: Furosemide (Lasix) 40 mg IV ONCE ONE Stop: 05/15/19 07:19 Gabapentin (Neurontin) 100 mg PO BID [facility] Last Admin: 05/14/19 21:16 Dose: 100 mg Documented by: Glucose (Insta-Glucose) 15 gm PO PRN PRN PRN Reason: Hypoglycemia Piperacillin Sod/Tazobactam (Sod 4.5 gm/ Dextrose) 50 mls @ 100 mls/hr IV Q8H [facility]; Protocol Last Admin: 05/15/19 05:23 Dose: 100 mls/hr Documented by: Vancomycin HCl 1,500 mg/ (Sodium Chloride) 500 mls @ 333.3 mls/hr IV DAILY [facility] Last Admin: 05/14/19 10:46 Dose: 333.3 mls/hr Documented by: Albumin Human (Buminate) 12.5 gm in 50 mls @ 100 mls/hr IV ONCE ONE Stop: 05/15/19 07:47 Insulin Human Lispro (Humalog) 0 unit SQ [facility]; Protocol Last Admin: 05/14/19 21:12 Dose: 3 units Documented by: Insulin Human NPH (Humalin N) 50 unit SQ HS [facility] Last Admin: 05/14/19 21:11 Dose: 50 unit Documented by: Insulin Human NPH (Humalin N) 54 unit SQ QAM [facility] Last Admin: 05/14/19 09:31 Dose: 54 unit Documented by: Iron Carb/Multivit/[place]/Folic Acid (Multivitamin W/Minerals) 1 tab PO DAILY [facility] Last Admin: 05/14/19 08:34 Dose: 1 tab Documented by: Metoprolol Tartrate (Lopressor) 50 mg PO BID [facility] Last Admin: 05/14/19 21:10 Dose: 50 mg Documented by: Mupirocin (Bactroban Oint 2%) 1 dose NARES BID [facility] Last Admin: 05/14/19 21:11 Dose: 1 dose Documented by: Naloxone HCl (Narcan) 0.1 mg IV Q2MIN PRN PRN Reason: Opiate Reversal Ondansetron HCl (Zofran) 4 mg IV Q4HP PRN PRN Reason: Nausea And Vomiting Pantoprazole Sodium (Protonix) 40 mg PO QAMAC [facility] Last Admin: 05/14/19 07:38 Dose: 40 mg Documented by: Sodium Chloride (Saline Flush) 10 ml IV Q8 [facility] Last Admin: 05/15/19 05:23 Dose: 10 ml Documented by: Vancomycin HCl (Vancomycin Per Pharmacy) 1 order IV [facility]; Protocol Warfarin Sodium (Coumadin Per Pharmacy) 1 order PO [facility] Medical - PN: A/P - Time Spent With Patient Total time spent is greater than 50% in coordination of care (as documented) at patient's floor/unit and/or counseling patient: - Narrative A/P Narrative: A: *Sepsis: resolved *Pneumonia: myco/strep Ag neg *Acute hypoxic respiratory failure -down to 1L NC o/n, just taken off O2 *High anion gap acidosis: resolved *JEANNETTE on CKD: improved *DM: *HTN: *Atrial Fibrillation h/o -Chronic Anticoagulation and amio/BB *Obstructive Sleep Apnea: *GERD: Plan: -prn O2, wean off -lasix this morning -Continue anticoagulation patient is presently in sinus rhythm on Coumadin; cont amio/BB -IV vancomycin and Zosyn azithromycin deescalate to azithro/rocephin -decrease qhs insulin -OT PT ST evaluation -ppx: coumadin per pharmacy/home ppi Full code Medical - PN: Qual - VTE Deep Vein Thrombosis/Pulmonary Embolism Present on Admission: No
[2019-05-15] MEDS: ALBUMIN HUMAN 12.5 GM/50 ML BAG IV ONE ×2 (07:27→08:25)
[2019-05-15] MEDS ORDERED: cefTRIAXone 1 GM VIAL IV SCH (07:30)
[2019-05-15] MEDS: PANTOPRAZOLE 40 MG TABLET PO SCH (07:48)
[2019-05-15] MEDS: INSULIN LISPRO 1 UNIT/0.01 ML UNIT SQ SCH ×2 (07:49→11:25)
[2019-05-15] MEDS ORDERED: LACTOBACILLUS 1 CAPSULE PO SCH (09:00)
[2019-05-15 09:12] LABS: INR 3.3 (0.9-1.1)
[2019-05-15] MEDS: AZITHROMYCIN 250 MG TABLET PO SCH (09:17)
[2019-05-15] MEDS: ATORVASTATIN 20 MG TABLET PO SCH (09:17)
[2019-05-15] MEDS: MULTIVIT,THER IRON,CA,FA & MIN 1 TABLET PO SCH (09:22)
[2019-05-15] MEDS: INSULIN NPH, HUMAN 1 UNIT/0.01 ML UNIT SQ SCH (09:23)
[2019-05-15] MEDS: BRIMONIDINE OPHTH DROPS 1 GTT BOTTLE 5ML OU SCH (09:23)
[2019-05-15] MEDS: METOPROLOL TARTRATE 50 MG TABLET PO SCH (09:23)
[2019-05-15] MEDS: GABAPENTIN 100 MG CAPSULE PO SCH (09:23)
[2019-05-15] MEDS: AMIODARONE HCL 200 MG TABLET PO SCH (09:23)
[2019-05-15] MEDS: MUPIROCIN OINT 2% 22GM NARES SCH (09:24)
[2019-05-15] MEDS ORDERED: INSULIN NPH, HUMAN 1 UNIT/0.01 ML UNIT SQ SCH (21:00)
[2019-05-17 16:13] LABS: Legionella pneumophilia Ag, Ur NOT DETECTED
== END 2019-05-15 13:20 | disposition home or self-care (01) | DRG 871 ==
LOC: ED 00:35 → EDBD 03:48 → ICU 03:48 → MEDSUR 05-13 10:33
PROVIDERS: ADMIT Internal Medicine; ATTEND Internal Medicine